=== PATIENT | male | born 1975 | race Two or more races ===

== ENCOUNTER 2020-08-25 09:59 | Emergency (ER) | payer OTHER ==
[~2020-08-25] VITALS: Ht 172.7 cm; Wt 90.7 kg
[2020-08-25 10:05] VITALS: BP 0/0
[2020-08-26 11:01] LABS: Hepatitis B Surface Antibody Positive
[2020-08-26 13:11] LABS: Hepatitis B Surface Antigen Negative (Negative)
== END 2020-08-25 11:05 | disposition home or self-care (01) ==
LOC: ER 09:59
DX: S61.230A Puncture wound without foreign body of right index finger without damage to nail, initial encounter (principal); W46.1XXA Contact with contaminated hypodermic needle, initial encounter; Y93.89 Activity, other specified; Y92.89 Other specified places as the place of occurrence of the external cause; Y99.8 Other external cause status
CPT/HCPCS: 36415; 86703; 86706; 86803; 87340